=== PATIENT | male | born 1960 | race African-American/Black ===

== ENCOUNTER → 2019-07-30 | Day surgery (SDC) | payer OTHER ==
[~2019-07-30] MED LIST: ATOR10TA60 PO; CETI10TA24 PO; IV RINGERS,LACTATED 1000ML 1,000 ML IV SCH; LIDOCAINE 2% PF 5 ML VIAL. ONE; LOSA-73 PO; MONT10TA49 PO; PROPOFOL 40 ML IV ONE
[2019-07-30 12:53] VITALS: BP 120/62
--- NOTE | 2019-07-31 01:04 | CONS ---
DATE OF CONSULTATION: 07/30/2019 GASTROINTESTINAL CONSULTATION REFERRING PHYSICIAN: [facility] REASON FOR CONSULTATION: Recent rectal bleeding, abdominal pain. HISTORY OF PRESENT ILLNESS: A 58-year-old male with past medical history significant for hypertension, hyperlipidemia, is seen with recurrent abdominal pain, was particularly severe in May, not associated with any diarrhea or constipation. There is evidence of intermittent rectal bleeding. FAMILY HISTORY: Positive for ovarian cancer with his sister. He has not undergone previous colonoscopy. No family history of colon cancer is noted. Weight and appetite have otherwise been stable. He is otherwise without additional complaints. PAST MEDICAL HISTORY: Hypertension, hyperlipidemia. ALLERGIES: None. MEDICATIONS: Include atorvastatin, Zyrtec, losartan, montelukast. FAMILY AND SOCIAL HISTORY: He is incarcerated. Does not drink or smoke. FAMILY HISTORY: Positive for cancer with a sister. PAST SURGICAL HISTORY: Noncontributory. REVIEW OF SYSTEMS: As above. PHYSICAL EXAMINATION: GENERAL: Reveals a well-nourished, well-developed male who is alert, cooperative, in no acute distress. VITAL SIGNS: Temperature 98.1, pulse 81, respiratory rate 18. HEENT: Normocephalic, atraumatic head. Pupils and extraocular muscles are not tested. Sclerae anicteric. NECK: Supple. LUNGS: Clear. CARDIOVASCULAR: Reveals an S1, S2 without S3, S4 or appreciable murmur. ABDOMEN: Reveals a soft abdomen, normal bowel sounds, without appreciable hepatosplenomegaly. EXTREMITIES: Reveals no cyanosis, clubbing, edema. IMPRESSION: Rectal bleeding with abdominal pain, etiology is to be determined. Differential includes ischemic colitis, inflammatory bowel disease, colon cancer, diverticular disease. Therefore, recommend colonoscopy to further assess. Risks and benefits of procedure including risk of hemorrhage and perforation have been discussed. The patient is willing to proceed. If this is unrevealing and symptoms should persist an interval imaging including CT scan of the abdomen and pelvis would be pursued. WIL SIFUENTES MD DR: RENE/fanny JOB#: [id number] / [id number]
== END ==
LOC: ENDOS 10:51 → EEVIPCON 12:00
PROVIDERS: ATTEND Internal Medicine Gastroenterology
DX: K62.5 Hemorrhage of anus and rectum (principal); K57.30 Diverticulosis of large intestine without perforation or abscess without bleeding; K64.0 First degree hemorrhoids; I10 Essential (primary) hypertension; E78.5 Hyperlipidemia, unspecified; Z80.0 Family history of malignant neoplasm of digestive organs
CPT/HCPCS: 45378; J2001; J2704